=== PATIENT | male | born 1995 | race Two or more races ===

== ENCOUNTER 2024-02-15 12:43 | Emergency (ER) | payer SELFPAY ==
[2024-02-15] MEDS: Lidocaine 1% 5 ML VIAL INJECT ONE (14:35)
[2024-02-15] MEDS: fentaNYL 100 MCG/2 ML SDV IVPUSH ONE (14:41)
== END 2024-02-15 16:17 | disposition home or self-care (01) ==
LOC: JP.ED 12:43
DX: S60.011A Contusion of right thumb without damage to nail, initial encounter (principal); W23.0XXA Caught, crushed, jammed, or pinched between moving objects, initial encounter
CPT/HCPCS: 11740; 73140-26-F5; 73140-F5; 99283-25